=== PATIENT | male | born 1990 | race Two or more races ===

== ENCOUNTER 2025-02-09 09:53 | Emergency (ER) | payer MEDICAID, OTHER ==
[~2025-02-09] VITALS: Ht 160 cm; Wt 73.7 kg
[2025-02-09 10:01] VITALS: TEMP 98.2
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
--- NOTE | 2025-02-09 12:52 | DVH ---
CT MAXILLOFACIAL WITHOUT Indication: nasal fracture EXAM DATE: 02/09/2025 11:44 AM COMPARISON: None TECHNIQUE: CT of the maxillofacial bones without intravenous contrast. RADIATION DOSE: CTDIvol: 66.95 mGy, DLP: 1363.98 mGy*cm FINDINGS: Mastoids that are imaged are well pneumatized. Extensive ethmoid, maxillary, sphenoid sinus disease. Orbits and retrobulbar spaces unremarkable. Fracture of the nasal bone anteriorly and superiorly. Presence of dental disease. IMPRESSION: Fracture of the nasal bone. Paranasal sinus disease.
[2025-02-09] MEDS ORDERED: AUG875T PO (13:01)
[2025-02-09 13:15] VITALS: BP 156/75; PULSE 66; RESP 18; O2SAT 98
== END 2025-02-09 13:16 | disposition home or self-care (01) ==
LOC: ER 09:53
DX: S02.2XXA Fracture of nasal bones, initial encounter for closed fracture (principal); Y30.XXXA Falling, jumping or pushed from a high place, undetermined intent, initial encounter; Y93.39 Activity, other involving climbing, rappelling and jumping off; Y92.89 Other specified places as the place of occurrence of the external cause; Y99.8 Other external cause status
CPT/HCPCS: 70486